=== PATIENT | female | born 1940 | race Caucasian/White ===

== ENCOUNTER 2018-01-26 11:05 | Emergency (ER) | payer MEDICARE ==
[2014-09-23 23:13] VITALS: BP 137/68
[~2018-01-26] VITALS: Ht 167.6 cm; Wt 63.0 kg
[~2018-01-26 11:05] MED LIST: CIPR500T94 PO; ONDA4TAB10 PO
--- NOTE | 2018-01-26 11:23 | PHYS DOC ---
Past History Past Medical History: High Cholesterol, Hypertension Past Surgical History: Appendectomy, Tubal ligation Alcohol Use: None Drug Use: None Adult General Chief Complaint Chief Complaint: LACERATION/AVULSION HPI HPI Patient is a pleasant 77-year-old female presents to the emergency department for evaluation. She was carrying boxes morning, and brushed her right hand against an open screen door, sustaining an abrasion/superficial skin tear, the dorsal aspect of her right hand, in between the first and second metacarpal bones. She denies any bony pain or tenderness. Bleeding is controlled. She does not have any significant pain other than the pain from the soft tissue cut. She is uncertain of her last tetanus but states it has been a long time ago. She has no other complaints. She is currently taking doxycycline prophylactically in anticipation of an upcoming eye surgery. Review of Systems Review of Systems Constitutional: Denies fever or chills [] Musculoskeletal: Denies back pain or joint pain [] Integument: Denies rash or skin lesions [] Neurologic: Denies focal weakness or sensory changes [] Current Medications Current Medications Current Medications Medications (Trade) Dose Ordered Sig/Odalis Start Time Stop Time Status Last Admin Dose Admin Diphtheria/ Tetanus/Acell Pertussis (Boostrix) 0.5 ml ONCE ONCE 01/26/18 11:30 01/26/18 11:31 UNV Neomycin/ Polymyxin/ Bacitracin (Triple Antibiotic) 1 vineet 1X ONCE 01/26/18 11:30 01/26/18 11:31 UNV Allergies Allergies Allergies Coded Allergies Type Severity Reaction Last Updated Verified meperidine Allergy Intermediate 09/23/14 Yes prochlorperazine Allergy Intermediate 09/23/14 Yes tramadol Adverse Reaction Intermediate N/V, dizziness, anxiety 02/14/15 Yes Physical Exam Physical Exam PHYSICAL EXAM: HEENT: Atruamatic NECK: Supple, normal ROM, non-tender. CARDIAC: Regular Rate and Rhythm LUNGS: Clear Bilaterally EXTREMITIES: There is a 2-3 cm superficial skin tear, without significant epithelial edge disruption or displacement, on the dorsal aspect of the right hand, as described in the history of present illness. There is no associated bony tenderness to palpation. The digits exhibit normal range of motion without any tenderness to palpation. The wrist is nontender. The wound margins are easily approximated. EKG EKG [] Radiology/Procedures Radiology/Procedures [] Course & Med Decision Making Course & Med Decision Making A bandage will be placed, such that the Band-Aid hold the wound edges in place. I discussed wound care with the patient and the need for PCP follow-up. Her tetanus will be updated. Dragon Disclaimer Dragon Disclaimer This electronic medical record was generated, in whole or in part, using a voice recognition dictation system. Departure Departure: Impression: Primary Impression: Skin tear Disposition: HOME, SELF-CARE Condition: STABLE Referrals: NON,STAFF (PCP) Patient Instructions: Skin Tear Care ANABEL DE LOS SANTOS MD Jan 26, 2018 11:23
[2018-01-26] MEDS ORDERED: NEOMY/BACITR/POLYMYXIN OINT PACKET. TP ONE (11:45)
[2018-01-26] MEDS ORDERED: DIPHTH,PERTUSS(ACELL),TET TOX 0.5 ML DISP.SYRIN. VAX IM ONE (11:45)
== END 2018-01-26 11:43 | disposition home or self-care (01) ==
LOC: ER 11:05
DX: S61.411A Laceration without foreign body of right hand, initial encounter (principal); E78.00 Pure hypercholesterolemia, unspecified; I10 Essential (primary) hypertension; Z88.8 Allergy status to other drugs, medicaments and biological substances; W22.8XXA Striking against or struck by other objects, initial encounter; Y93.89 Activity, other specified; Y92.89 Other specified places as the place of occurrence of the external cause; Y99.8 Other external cause status
CPT/HCPCS: 90471; 90715; 99283-25

== ENCOUNTER 2020-10-04 10:16 | Emergency (ER) | payer MEDICARE ==
[~2020-10-04] VITALS: Ht 167.6 cm; Wt 64.2 kg
--- NOTE | 2020-10-04 10:44 | PHYS DOC ---
Past History Past Medical History: No Pertinent History Past Surgical History: No Surgical History Alcohol Use: None Drug Use: None Adult General Chief Complaint Chief Complaint: ABDOMINAL PAIN HPI HPI Patient is a 79-year-old female presenting for constipation. Last good bowel movement was 2 days prior to arrival. She contacted her primary care physician and was notified to use MiraLAX which she has done in the past 2 days without significant relief in symptoms. She feels bloated and generalized abdominal discomfort. Admits she is still passing gas and has had watery diarrhea but is concerned next day is October 05 and she wants to eat a lot of ribs Review of Systems Review of Systems Fourteen body systems of review of systems have been reviewed. See HPI for pertinent positives and negative responses, other fernandes all other systems are negative, non-pertinent or non-contributory Allergies Allergies Allergies Coded Allergies Type Severity Reaction Last Updated Verified meperidine Allergy Intermediate 09/23/14 Yes prochlorperazine Allergy Intermediate 09/23/14 Yes tramadol Adverse Reaction Intermediate N/V, dizziness, anxiety 02/14/15 Yes Physical Exam Physical Exam Constitutional: Well developed, well nourished, no acute distress, non-toxic appearance. HENT: Normocephalic, atraumatic, bilateral external ears normal, oropharynx moist, no oral exudates, nose normal. Eyes: PERRLA, EOMI, conjunctiva normal, no discharge. Neck: Normal range of motion, no tenderness, supple, no stridor. Cardiovascular: Heart rate regular, sinus rhythm, no murmurs rubs or gallops Lungs & Thorax: Bilateral breath sounds clear to auscultation Abdomen: Bowel sounds normal, soft but there is palpable stool, mild generalized tenderness without guarding or rebound, no masses, no pulsatile masses. Nonsurgical abdomen, no peritoneal signs : External rectum with external hemorrhoids present that are nonthrombosed. Rectal tone intact, EB performed and no palpable stool burden/impaction Skin: Warm, dry, no erythema, no rash. Back: No tenderness, no CVA tenderness. Extremities: No tenderness, no cyanosis, no clubbing, ROM intact, no edema. Neurologic: Alert and oriented X 3, grossly normal motor & sensory function, no focal deficits noted. Psychologic: Affect normal, judgement normal, mood normal. Current Patient Data Vital Signs Vital Signs Date Time Temp Pulse Resp B/P (MAP) Pulse Ox O2 Delivery O2 Flow Rate FiO2 10/04/20 11:03 98.3 104 20 160/73 96 Room Air Vital Signs Date Time Temp Pulse Resp B/P (MAP) Pulse Ox O2 Delivery O2 Flow Rate FiO2 10/04/20 11:03 98.3 104 20 160/73 96 Room Air EKG EKG [] Radiology/Procedures Radiology/Procedures [] Heart Score C/O Chest Pain: No Risk Factors: Risk Factors: DM, Current or recent (<one month) smoker, HTN, HLP, family history of CAD, obesity. Risk Scores: Risk Factors: DM, Current or recent (<one month) smoker, HTN, HLP, family history of CAD, obesity. Course & Med Decision Making Course & Med Decision Making ABCs unremarkable. I disclosed entirety of ER findings and discussed most likely diagnosis of constipation. I discussed low likelihood of any emergent or surgical issues, no impaction or other need for further diagnostic work-up and/or intervention in ER setting. Continued supportive care advised. I stressed need for close outpatient follow-up to review today's ER visit. Strict return precautions were also discussed at length with good understanding by patient. Patient voiced understanding and agreement with the plan. Patient knows to come back for repeat evaluation if concerning signs or symptoms present prior to outpatient follow-up. Hemodynamically stable, ambulatory and well- appearing at time of disposition. Dragon Disclaimer Dragon Disclaimer This electronic medical record was generated, in whole or in part, using a voice recognition dictation system. Departure Departure: Impression: Primary Impression: Constipation Disposition: HOME / SELF CARE / HOMELESS Condition: STABLE Referrals: PCP,NO (PCP) Patient Instructions: Constipation, Adult Additional Instructions: You were seen for constipation. Make sure to drink plenty of fluids and eat lots of fruits and vegetables. Please aim to ingest at least 10 g of fiber daily. You should use miralax, a fiber supplement such as Metamucil 1 to 2 teaspoons up to 3 times daily, and and qhnr-iot-pypdemz emollient such as Colace 100 mg daily to help your bowel movements become more regular. Return to the ED if you develop abdominal pain, fever, black/bloody stools, vomiting, or any other new or concerning symptoms. Scripts Docusate Sodium (COLACE) 100 Mg Capsule 1 CAP PO BID for constipation for 15 Days, #30 CAP 0 Refills Prov: TASIA ARANGO DO 10/04/20 Psyllium Husk (Metamucil) 0.4 Gm Capsule 1 CAP PO BID for constipation for 20 Days, #40 CAP 0 Refills Prov: TASIA ARANGO DO 10/04/20 TASIA ARANGO DO Oct 04, 2020 10:44
[2020-10-04 11:03] VITALS: BP 160/73
[2020-10-04] MEDS ORDERED: PSYL0.4C2 PO (11:20)
[2020-10-04] MEDS ORDERED: DOCU-109 PO (11:20)
== END 2020-10-04 11:40 | disposition home or self-care (01) ==
LOC: ER 10:16
DX: K59.00 Constipation, unspecified (principal); Z88.6 Allergy status to analgesic agent
CPT/HCPCS: 99282-25

== ENCOUNTER → 2020-10-10 | Outpatient (CLI) | payer MEDICARE ==
[2020-10-04 11:03] VITALS: BP 160/73
[~2020-10-10] MED LIST changes: +DOCU-109 PO; +PSYL0.4C2 PO
--- NOTE | 2020-10-10 11:27 | RAD ---
AP abdomen radiograph 10/10/2020 CLINICAL HISTORY: Constipation for one month. An AP supine digital radiograph abdomen/pelvis was obtained. Air distention of both small and large b owel loops is seen without definite evidence of bowel obstruction. Atherosclerotic calcification of t he abdominal aorta and its branches is noted. There is diffuse osteopenia of the visualized bony stru ctures. Degenerative changes are seen involving lower thoracic and throughout the lumbar spine along with both hips. IMPRESSION: Nonobstructive bowel gas pattern. Electronically signed by: Earle Jack MD (10/10/2020 11:24 AM) [id number]
== END ==
LOC: RAD 09:14
DX: K59.00 Constipation, unspecified (principal)
CPT/HCPCS: 74018

== ENCOUNTER → 2020-11-05 | Day surgery (SDC) | payer MEDICARE ==
[~2020-11-05] MED LIST changes: +ACETAMINOPHEN 500 MG TABLET PO PRN; +ASPI-630 PO; +BALANCED SALT IRRIG SOLN NO.2 500 ML IO ONE; +BENZONATATE 100 MG CAPSULE. PO PRN; +BRIMONIDINE 0.2% OPHTH SOLUTION 5ML BOTTLE. OD ONE; +CEFUROXIME OPHTH 4 MG/0.4 ML SYRINGE. OD ONE; +CHONDROIT-SOD-HYALURONATE KIT. OD ONE; +IBUPROFEN 200 MG TABLET PO PRN; +IPRATRPIUM/ALBUTEROL 0.5/2.5MG 3 ML NEBU. NEB PRN; +IV RINGERS SOLUTION,LACTATED 1,000 ML IV SCH; +LIDO/EPI IN BSS OPHTH 2.7 ML SYRINGE. OD ONE; +LIDOCAINE 2% JELLY 6ML IN APPLICATOR. ONE; +LISI20TA18 PO; +MIDAZOLAM HCL PF 2 MG/2 ML VIAL. IV ONE; +MIDAZOLAM HCL PF 2 MG/2 ML VIAL. ONE; +ONDANSETRON PF 4 MG/2 ML VIAL. IV PRN; +PHENYLEPHRINE 10% OPHTH SOLUTION 5ML BOTTLE. OD PRN; +POVIDONE-IODINE 5% OPHTH SOLUTION 30ML BOTTLE. OD ONE; +POVIDONE-IODINE 5% OPHTH SOLUTION 30ML BOTTLE. OD PRN; +POVIDONE-IODINE 5% OPHTH SOLUTION 30ML BOTTLE. ONE; +PROPARACAINE 0.5% OPHTH SOLUTION 15ML BOTTLE. OD ONE; +PROPARACAINE 0.5% OPHTH SOLUTION 15ML BOTTLE. OD PRN; +SIMV40TA18 PO; +ZOLP5TAB PO; +prednisoLONE ACETATE 1% OPHTH SUSPENSION 5ML BOTTLE. OD ONE
[2020-11-05] MEDS: TROPICAMIDE 1% OPHTH SOLUTION 15ML BOTTLE. OD SCH ×3 (09:15→09:45)
[2020-11-05] MEDS: PHENYLEPHRINE 2.5% OPHTH SOLUTION 2ML BOTTLE. OD SCH ×3 (09:35→09:45)
[2020-11-05] MEDS: TOBRAMYCIN 0.3% OPHTH SOLUTION 5ML BOTTLE. OD SCH ×2 (09:35→09:40)
[2020-11-05] MEDS: KETOROLAC TROMETHAMINE 0.5% OPHTH SOLUTION BOTTLE. OD SCH ×2 (09:35→09:40)
--- NOTE | 2020-11-05 11:21 | PDOC4 ---
SURGEON: Reed Baron MD Date of Procedure: 11/05/20 PREOP Diagnosis Visually significant cataract: Right Eye OD POSTOP Diagnosis Same PROCEDURE: Phaco w/ posterior chamber IOL: Right Eye OD ANESTHESIA Deep forniceal periocular 2% Lidocaine jelly Evon/retro bulbar block with 2% Lidocaine with 0.5% Marcaine DESCRIPTION OF PROCEDURE The risks, benefits, and alternatives were discussed with the patient who elected to proceed. Informed consent was obtained in writing and placed in the chart After anesthetizing the eye topically, the patient was taken to the operating room, and the operative eye was prepped and draped in the usual sterile fashion for ocular surgery. A wire lid speculum was placed. A 1-mm clear corneal paracentesis incision was created with the side-port blade at a position three o'clock hours clockwise from the temporal cornea. Then, 1% non-preserved Lidocaine with epinephrine was injected into the anterior chamber followed by viscoelastic. Cotton-tipped applicators were used to stabilize the globe, and a 2.4 mm keratome was used to create a self-sealing incision in clear cornea at the temporal limbus. The Utrata forceps were used to create a continuous curvilinear capsulorrhexis. Balanced saline solution was injected via cannula beneath the capsulorrhexis edge to hydrodissect the lens nucleus and cortex from the lens capsule. The phacoemulsification handpiece and a chopping instrument were then used to remove the lens nucleus. The remaining epinuclear material and cortex were removed with the irrigation/aspiration handpiece. Vi scoelastic was used to re-inflate the lens capsule, and the intraocular lens was injected directly into the capsular bag. The corneal wound edges were hydrated with balanced salt solution on a cannula and the irrigation/aspiration handpiece was used to extract the remaining viscoelastic. Cefuroxime 0.1mg/ml / Vigamox 0.5% was injected into the anterior chamber intracamerally. The wounds were inspected and found to be watertight at an appropriate intraocular pressure. Topical antibiotic drops were placed on the corneal surface. LRI: No If Yes, Number [] Pollock [] Length [] degrees Depth [] microns Incision Pollock: 180 Toric Lens Pollock [] Patch/shield with Maxitrol/Tobradex/Erythromycin ointment: Yes No Co-managed patients/postop examination stable for co-management with referring doctor. EBL EBL: None SPECIMANS COLLECTED Specimens Collected: None REED BARON MD Nov 05, 2020 11:21
[2020-11-05 11:32] VITALS: BP 122/49
== END | disposition home or self-care (01) ==
LOC: SURG 09:00
PROVIDERS: ATTEND Ophthalmology
DX: H25.11 Age-related nuclear cataract, right eye (principal); I10 Essential (primary) hypertension; E78.00 Pure hypercholesterolemia, unspecified; F41.9 Anxiety disorder, unspecified; G62.9 Polyneuropathy, unspecified; F17.210 Nicotine dependence, cigarettes, uncomplicated; Z98.890 Other specified postprocedural states; Z79.899 Other long term (current) drug therapy
CPT/HCPCS: 66984; J2250; V2632

== ENCOUNTER → 2021-08-12 | Outpatient (CLI) | payer MEDICARE ==
[~2021-08-12] MED LIST changes: -ACETAMINOPHEN 500 MG TABLET PO PRN; -BALANCED SALT IRRIG SOLN NO.2 500 ML IO ONE; -BENZONATATE 100 MG CAPSULE. PO PRN; -BRIMONIDINE 0.2% OPHTH SOLUTION 5ML BOTTLE. OD ONE; -CEFUROXIME OPHTH 4 MG/0.4 ML SYRINGE. OD ONE; -CHONDROIT-SOD-HYALURONATE KIT. OD ONE; -IBUPROFEN 200 MG TABLET PO PRN; -IPRATRPIUM/ALBUTEROL 0.5/2.5MG 3 ML NEBU. NEB PRN; -IV RINGERS SOLUTION,LACTATED 1,000 ML IV SCH; -LIDO/EPI IN BSS OPHTH 2.7 ML SYRINGE. OD ONE; -LIDOCAINE 2% JELLY 6ML IN APPLICATOR. ONE; -MIDAZOLAM HCL PF 2 MG/2 ML VIAL. IV ONE; -MIDAZOLAM HCL PF 2 MG/2 ML VIAL. ONE; -ONDANSETRON PF 4 MG/2 ML VIAL. IV PRN; -PHENYLEPHRINE 10% OPHTH SOLUTION 5ML BOTTLE. OD PRN; -POVIDONE-IODINE 5% OPHTH SOLUTION 30ML BOTTLE. OD ONE; -POVIDONE-IODINE 5% OPHTH SOLUTION 30ML BOTTLE. OD PRN; -POVIDONE-IODINE 5% OPHTH SOLUTION 30ML BOTTLE. ONE; -PROPARACAINE 0.5% OPHTH SOLUTION 15ML BOTTLE. OD ONE; -PROPARACAINE 0.5% OPHTH SOLUTION 15ML BOTTLE. OD PRN; -prednisoLONE ACETATE 1% OPHTH SUSPENSION 5ML BOTTLE. OD ONE
--- NOTE | 2021-08-12 17:18 | RAD ---
Exam: CT abdomen/pelvis without intravenous contrast Indication: Hematuria Comparison: CT abdomen pelvis 08/28/2008 Technique: Helical CT imaging performed of the abdomen and pelvis without the use of intravenous cont rast. Sagittal and coronal reformats were obtained. One or more of the following individualized dose reduction techniques were utilized for this examinat ion: 1. Automated exposure control 2. Adjustment of the mA and/or kV according to patient size 3. Use of iterative reconstruction technique. Findings: Inherently limited evaluation without intravenous contrast. Lower chest: The lung bases are clear. The heart is normal in size. There are coronary artery calcifi cations. Liver: No focal liver lesion. There are a few small calcified granulomas in the liver. Gallbladder/Biliary Tree: The gallbladder is normal. The common bile duct is prominent, within normal limits for age. Pancreas: Mild diffuse pancreatic atrophy. Spleen: No splenomegaly. There are calcified splenic granulomas. Adrenal Glands: There is a 3 cm right adrenal adenoma. The left adrenal gland is normal. Kidneys/Ureters/Bladder: Kidneys are normal in size. No hydronephrosis or urolithiasis. There is a 2. 3 cm exophytic simple cyst at the superior pole the left kidney. Ureters are normal. There is a tiny focus of gas in the urinary bladder. No bladder wall thickening. Reproductive Organs: Uterus is present. There is no adnexal mass. Stomach, small bowel, and colon: The stomach is normal. There is no small bowel obstruction. The colo n is unremarkable. Vasculature: Severe calcified aortoiliac atherosclerosis. This appears to cause focal moderate to sev ere narrowing of the aorta at the level the diaphragm. There are calcifications at the abdominal aort ic branches and severe calcifications in the proximal common iliac arteries. Evaluation of stenosis l imited due to lack of IV contrast Lymph Nodes: No lymphadenopathy. Peritoneum and retroperitoneum: No free fluid or free air. Bones: The bones are diffusely demineralized. There is no acute fracture or osseous lesion. Mild lumb ar scoliosis with degenerative disc disease, greatest at L4-L5 and L5-S1. Miscellaneous: None. IMPRESSION: 1. No hydronephrosis or urolithiasis. 2. Tiny focus of gas in urinary bladder. This could be due to instrumentation or infection. 3. Severe calcified aortoiliac atherosclerosis with focal moderate to severe narrowing of the abdomi nal aorta at the level of the diaphragm, incompletely evaluated due to lack of IV contrast. Electronically signed by: Liana Hwang MD (08/12/2021 5:15 PM) [facility]
== END ==
LOC: CT 15:43
PROVIDERS: ATTEND Urology
DX: N28.1 Cyst of kidney, acquired (principal); I70.0 Atherosclerosis of aorta; M41.87 Other forms of scoliosis, lumbosacral region; M51.37 Other intervertebral disc degeneration, lumbosacral region; K75.3 Granulomatous hepatitis, not elsewhere classified; D35.02 Benign neoplasm of left adrenal gland; R31.29 Other microscopic hematuria
CPT/HCPCS: 74176

== ENCOUNTER → 2021-08-13 | Outpatient (CLI) | payer MEDICARE ==
[2021-08-13 15:00] LABS: CLARITY,URINE CLEAR; COLOR,URINE YELLOW; GLUCOSE,URINE NEG (NEG)
[2021-08-13 15:01] LABS: BACTERIA,URINE FEW /HPF (0-FEW); NITRITE,URINE NEG (NEG); SQUAMOUS EPITHELIAL CELL,UR MANY /LPF; UROBILINOGEN,URINE 0.2 mg/dL (0.2 mg/dL)
== END ==
LOC: LAB 14:20
PROVIDERS: ATTEND Urology
DX: R30.0 Dysuria (principal)
CPT/HCPCS: 81001